=== PATIENT | female | born 1975 | race Caucasian/White ===

== ENCOUNTER 2019-01-13 18:45 | Emergency (ER) | payer MEDICAID ==
[~2019-01-13] VITALS: Ht 157.5 cm; Wt 75.0 kg
[2019-01-13] MEDS ORDERED: METF-960 PO (19:26)
[2019-01-13 19:28] LABS: GLUCOSE,POINT OF CARE 195 MG/DL (70-110)
[2019-01-13] MEDS ORDERED: INSNOV SQ (19:28)
[2019-01-13] MEDS ORDERED: KETOROLAC TROMETHAMINE 60 MG/2 ML VIAL IM ONE (20:15)
[2019-01-13] MEDS ORDERED: HYDROCODONE/ACETAMINOPHEN 5-325 MG TABLET PO ONE (20:15)
[2019-01-13 20:39] VITALS: BP 132/72
== END 2019-01-13 20:49 | disposition home or self-care (01) ==
LOC: EMS 18:47
DX: E11.40 Type 2 diabetes mellitus with diabetic neuropathy, unspecified (principal); M54.32 Sciatica, left side; M54.31 Sciatica, right side; F12.90 Cannabis use, unspecified, uncomplicated; F17.210 Nicotine dependence, cigarettes, uncomplicated; Z79.4 Long term (current) use of insulin
CPT/HCPCS: 82962; 96372; 99283; J1885